=== PATIENT | female | born 1970 | race Caucasian/White ===

== ENCOUNTER 2021-02-16 10:13 | Day surgery (SDC) | payer OTHER ==
[2021-02-14 15:04] VITALS: BMI 32.4
[2021-02-16] MEDS ORDERED: MIDAZOLAM HCL 2 MG/2 ML SINGLE DOSE VIAL ONE (10:33)
[2021-02-16] MEDS ORDERED: PROPOFOL 20 ML ONE (10:33)
[2021-02-16] MEDS ORDERED: LIDOCAINE HCL 2% (20ML MULTI-DOSE VIAL) ONE (11:12)
[2021-02-16] MEDS ORDERED: ceFAZolin SODIUM 1 GM VIAL ONE (11:39)
[2021-02-16] MEDS ORDERED: DEXAMETHASONE SOD PHOSPHATE 4 MG/1 ML VIAL ONE (11:39)
[2021-02-16] MEDS ORDERED: ONDANSETRON 4 MG/2 ML VIAL ONE (11:39)
[2021-02-16] MEDS ORDERED: LIDOCAINE HCL 2% (50ML VIAL) SQ ONE (11:42)
[2021-02-16] MEDS ORDERED: KETOROLAC TROMETHAMINE 30 MG/1 ML VIAL ONE (11:44)
[2021-02-16] MEDS ORDERED: BUPIVACAINE HCL/PF 0.25% (2.5MG/ML) 10 ML VIAL ONE (12:09)
[2021-02-16] MEDS ORDERED: BUPIVACAINE HCL/PF 0.25% (2.5MG/ML) 10 ML VIAL IJ ONE (12:18)
[2021-02-16 12:43] VITALS: TEMP 97.8
[2021-02-16 14:17] VITALS: BP 135/64; PULSE 61
== END 2021-02-16 13:30 | disposition home or self-care (01) ==
LOC: FASU 10:13
PROVIDERS: ATTEND Orthopaedic Surgery Hand Surgery
PROC: 0LU707Z Supplement Right Hand Tendon with Autologous Tissue Substitute, Open Approach (ICD-10-PCS; principal; 2021-02-16 11:42)
DX: S66.326A Laceration of extensor muscle, fascia and tendon of right little finger at wrist and hand level, initial encounter (principal); M20.021 Boutonniere deformity of right finger(s); X58.XXXA Exposure to other specified factors, initial encounter; Y92.9 Unspecified place or not applicable; Y93.9 Activity, unspecified
CPT/HCPCS: 84703